=== PATIENT | male | born 1965 | race Caucasian/White ===

== ENCOUNTER 2021-08-30 12:10 | Emergency (ER) | payer BC, SELFPAY ==
--- NOTE | ~2021-08-30 | XR_ITS ---
EXAMINATION: XR shoulder RT min 2V DATE: 08/30/2021 12:32 INDICATION: Right shoulder pain. TECHNIQUE: 4 views of right shoulder were obtained. COMPARISON: Right shoulder radiographs 10/26/2009, MRI 10/30/2009 FINDINGS: Bone alignment is normal. No acute fracture. There are 2 screws in the acromion. There is m ild osteoarthritis of glenohumeral joint and acromioclavicular joint. IMPRESSION: 1. Mild polyarticular osteoarthritis. Reviewed, dictated and finalized at location B.
--- NOTE | ~2021-08-30 | XR_ITS ---
EXAMINATION: XR shoulder LT min 2V DATE: 08/30/2021 12:32 INDICATION: Left shoulder pain post fall TECHNIQUE: AP internally and externally rotated, AP oblique externally rotated and transscapular Y vi ews of the left shoulder were obtained. COMPARISON: None FINDINGS: Normal alignment. No fracture. Glenohumeral joint is normal. Acromioclavicular joint is normal. Cyst ic change suggested at the greater tuberosity which can be seen with chronic rotator cuff disease. Vi sual is portions of the left lung is clear. Soft tissues are unremarkable. IMPRESSION: No acute osseous abnormality. Reviewed, dictated and finalized at location A.
[2021-08-30 12:14] VITALS: BP 166/90; PULSE 67; RESP 20; TEMP 36.6; O2SAT 98
--- NOTE | 2021-08-30 14:07 | ED.FALL ---
HPI - Fall General Chief Complaint: Fall Stated Complaint: Rotator cuff tear Time Seen by Provider: 08/30/21 13:34 Source: patient Mode of arrival: ambulatory Limitations: no limitations History of Present Illness HPI Narrative: 55-year-old male presents today after a fall that he sustained yesterday. Patient states he was on a ladder about 2 feet up trying to put stuff on top of his camper when he fell onto his right side. Patient states on the way down he did hit his camper and then fell onto the ground. Patient with complaints of right shoulder pain that is now acute. Patient with chronic left shoulder pain that is now worse. Patient with limited range of motion to bilateral shoulders. Patient has been using ibuprofen at home with some relief. Patient denies hitting his head, neck pain, or leg pain. Related Data Allergies Allergy/AdvReac Type Severity Reaction Status Date / Time Penicillins Allergy Unknown Unknown Verified 08/30/21 13:00 Review of Systems Review of Systems: CONSTITUTIONAL: Denies fever, chills, or sweats. EYES: Denies visual changes, redness, or discharge. ENT: Denies rhinorrhea, congestion, sore throat, or otalgia. CARDIOVASCULAR: Denies chest pain, palpitations, or edema. RESPIRATORY: Denies cough or dyspnea. GASTROINTESTINAL: Denies abdominal pain, nausea, vomiting, or diarrhea. GENITOURINARY: Denies dysuria or hematuria. SKIN: Denies rash or itching. MUSCULOSKELETAL: Bilateral shoulder pain. Denies back pain or myalgia. NEUROLOGIC: Denies headache, numbness, dizziness, or weakness. PSYCHIATRIC: Denies anxiety or depression. PMFSH Family History Family History (Updated 06/24/16 @ 23:56 by DOCTOR UNKNOWN) Father Family history of lung cancer, Onset Age: 76 Patient's father is Carcinoma of colon Mother Patient's mother is Family history of lung cancer Family history of malignant neoplasm of breast in first degree relative Sibling Family history of lung cancer Other Family history of malignant neoplasm Social History Social History Smoking status: Former smoker Second hand tobacco smoke exposure: Yes Smoking end date: 03/20/86 Alcohol intake: current Exam Narrative: GENERAL: Well-appearing, well-nourished, and in no acute distress. HEAD: Normocephalic, atraumatic. EYES: PERRLA and EOMI. ENT: Nares clear, no rhinorrhea or epistaxis. Mucous membranes moist. Oropharynx without tonsillar hypertrophy exudate or other lesions. Bilateral TMs pearly trujillo nonbulging NECK: Supple. No adenopathy or masses. No carotid bruits or JVD no spinal process tenderness. Patient with full range of motion. CHEST: Clear to auscultation. No respiratory distress. No wheezes rales or rhonchi HEART: Regular rate and rhythm. No murmur heard. Normal peripheral pulses. ABDOMEN: Soft, nontender, nondistended, normal active bowel sounds. EXTREMITIES: Patient able to abduct bilateral shoulders to 90 degrees. Right shoulder with pain at 15 degrees AB duction. No swelling noted, no deformity noted. SKIN: Abrasion to right chauhan. Warm, dry, no rash. NEURO: No focal deficits. Alert and oriented x3. PSYCH: Normal mood and affect. Course Vital Signs Vital signs: Vital Signs Temperature 36.6 C 08/30/21 12:14 Pulse Rate 67 08/30/21 12:14 Respiratory Rate 20 08/30/21 12:14 Blood Pressure 166/90 H 08/30/21 12:14 Pulse Oximetry 98 08/30/21 12:14 Oxygen Delivery Room Air 08/30/21 12:14 Temperature 36.6 C 08/30/21 12:14 Pulse Rate 67 08/30/21 12:14 Respiratory Rate 20 08/30/21 12:14 Blood Pressure 166/90 H 08/30/21 12:14 Pulse Oximetry 98 08/30/21 12:14 Oxygen Delivery Room Air 08/30/21 12:14 MDM - Fall MDM Narrative Medical decision making narrative: 55-year-old male HPI as noted. Patient denies hitting head or neck. Patient fell on his right shoulder. No spinal process tenderness. No indication for CT of cervical
== END 2021-08-30 14:18 | disposition home or self-care (01) ==
PROVIDERS: Emergency Provider Nurse Practitioner Family; PCP Student in an Organized Health Care Education/Training Program
DX: M25.511 Pain in right shoulder (principal); Z87.891 Personal history of nicotine dependence; W11.XXXA Fall on and from ladder, initial encounter
CPT/HCPCS: 73030; 99284

== ENCOUNTER 2021-09-15 06:48 | Outpatient (CLI) | payer BC, SELFPAY ==
--- NOTE | ~2021-09-15 | MR_ITS ---
EXAMINATION: MR shoulder RT wo con DATE: 09/15/2021 07:41 INDICATION: Rheumatic tear of the right rotator cuff presenting with right shoulder pain. TECHNIQUE: Magnetic resonance imaging (MRI) of the right shoulder was performed without intravenous c ontrast. Sequences included axial PD-weighted FS FSE, coronal oblique PD-weighted FS FSE, coronal obl ique T2-weighted FS FSE, sagittal PD-weighted FS FSE, and sagittal T1-weighted SE. COMPARISON: Right shoulder radiographs dated 09/03/2021 FINDINGS: Coracoacromial arch: The acromion is partially obscured by metallic magnetic field field artifact associated with a pair o f fixation screws as seen on the prior radiographs. There appears to been resection of the acromial s stephen of the coracoacromial ligament where there are multiple foci of susceptibility artifact. Moderate acromioclavicular osteoarthritis. Rotator cuff: Severe subscapularis tendinopathy with articular sided fraying/shallow fissuring along the deep gordo n of the distal tendon near the medial side of the lesser tuberosity footplate. There is also a small partial-thickness intrasubstance tear along the superolateral lesser tuberosity footplate allowing p artial subluxation of the long head biceps tendon across the medial rim of the intertubercular groove and overlying the small denuded portion of the footplate. There are multiple foci susceptibility art ifact in a few suture anchors along the superior facet of the greater tuberosity suggesting prior sup raspinatus tendon repair.Articular sided tear of the supraspinatus and infraspinatus tendons with med ial retraction of the articular sided tear margin, the supraspinatus portion of which is seen at the level of the rim of the glenoid with the torn infraspinatus portion of the tear margin curving and po steriorly and laterally. There is attenuation of the distal 5 cm of the supraspinatus tendon and conj oined portion of the supraspinatus and infraspinatus tendons. No definitive full-thickness tear defec t appreciated however a significant portion of the supraspinatus tendon with overlying the cephalad a spect of the humeral head is obscured by the magnetic field artifact. Moderate teres minor tendinopa thy without discrete tear. There is mild fatty atrophy of the supraspinatus, infraspinatus, teres min or and cephalad-most subscapularis tendons. Biceps tendon, glenoid labrum and glenohumeral cartilage: Severe tendinopathy of the long head biceps tendon is most severe along the intra-articular portion o f the tendon. There is a longitudinal split tear likely beginning in the intra-articular portion of t he tendon extending into the extra-articular portion of the intertubercular groove. There is a superi or, anterior to posterior tear of the glenoid labrum (SLAP tear) at the 11:00-o'clock position of the superior glenoid labrum. There is mild partial-thickness cartilage loss along the cephalad third of the glenoid with smooth chondral surface. Small subchondral osteophytes along the anterosuperior julee oid. Additional muscle thickness cartilage loss with subchondral osteophytes along the anterior infer omedial aspect of the humeral head. Fluid: Small glenohumeral joint effusion with partial extension of a small amount fluid along the long head biceps tendon sheath. No loose osteochondral bodies. Small amount of fluid in the subacromial/subdelt oid bursa consistent with mild bursitis but could also result from a nonvisualized full-thickness per foration/tear of the obscured portion of the rotator cuff. Bones: Normal bone marrow signal. No fracture or pathologic marrow replacing process. Postoperative changes at the acromion and humeral head as previously detailed. IMPRESSION: 1. Postoperative change of prior rotator cuff repair as well as of screw fixation at the acromion, bl adder resulting in prominent magnetic field artifact which obscures p
== END 2021-09-15 06:49 ==
PROVIDERS: PCP Orthopaedic Surgery; Visit Provider Student in an Organized Health Care Education/Training Program
DX: S46.011A Strain of muscle(s) and tendon(s) of the rotator cuff of right shoulder, initial encounter (principal); Z98.890 Other specified postprocedural states; M24.811 Other specific joint derangements of right shoulder, not elsewhere classified; S43.431A Superior glenoid labrum lesion of right shoulder, initial encounter; M19.011 Primary osteoarthritis, right shoulder
CPT/HCPCS: 73221

== ENCOUNTER 2021-11-09 14:30 | Outpatient (RCR) | payer BC, SELFPAY ==
[2021-10-12 11:02] VITALS: BP_SYST 155
--- NOTE | 2021-10-12 14:07 | PTOPEVAL ---
PHYSICAL THERAPY INITIAL EVALUATION. Thank you for referring Amadeo Chacko to [facility].? The patient is scheduled to be seen for therapy? 1x/week for 4 weeks. Please review, sign, date and return this plan of care NEL. I agree with and certify that the following plan of care is medically necessary. Referring Physician Date Attending Provider: Amadeo Lewis MD *PT Outpatient Evaluation Start: 10/12/21 Evaluation Information Diagnosis Yang shoulder pain Onset chronic, worse in the last month Subjective Information He has a R RTC repair ~10 Query Text:As Reported By Patient/ years ago. Pt states he has a Family rotator cuff tear on his right shoulder and likely his left. He fell a couple of weeks ago onto his R shoulder and this is what started his pain again . He received steroid injections in both shoulders and this helped a bit. 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 Pain increases yang with any overhead movement and lifting anything with significant weight. Pt states he is an avid bowler and has not attempted this since his fall. Pt initially seem reluctant that therapy is a suitable option. 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 Hand Dominance Right Pain Assessment Left Shoulder(s) Reported Pain Level 0 Pain Description Aching Lowest Pain Intensity 0 Greatest Pain Intensity 3 Pain Aggravating Factors Exercise/Activity,Lifting Right Shoulder(s) Reported Pain Level 0 Pain Description Pressure,Pulling,With Movement Pain Radiation Right Elbow Pain Frequency Acute,Chronic Lowest Pain Intensity 0 Greatest Pain Intensity 8 Pain Aggravating Factors Exercise/Activity,Lifting Upper Extremity Range of Motion Scapular/ Shoulder Range of Motion Right Shoulder Flexion - Active 147 Shoulder Flexion - Passive 150 Shoulder Abduction - Active 130 Shoulder Abduction - Passive 155 Shoulder Medial Rotation - Passive 50 Shoulder Medial Rotation - Active R Iliac crest Shoulder Lateral Rotation - Passive 45 Shoulder Lateral Rotation - Active T2 Scapular/Shoulder Ra
[2021-11-09 14:31] VITALS: BP_SYST 170
--- NOTE | 2021-11-11 08:04 | PTOPEVAL ---
PHYSICAL THERAPY PROGRESS REPORT. Thank you for referring Amadeo Chacko to [facility].? The patient is scheduled to be seen for follow up in one month, if needed. Please review, sign, date and return this plan of care NEL. I agree with and certify that the following plan of care is medically necessary. Referring Physician Date Attending Provider: Amadeo Lewis MD *PT Outpatient Evaluation Start: 10/12/21 Evaluation Information Problem Diagnosis Yang shoulder pain Onset chronic, worse in the last month Subjective Information Pt states his L shoulder is Query Text:As Reported By Patient/ doing better but the R one is Family still aching and sore. He states he still has difficulty lifting things overhead. Pt states he has difficulty and pain with daily tasks d/t his shoulder. Pt reports good compliance with his HEP. Pain Assessment Left Shoulder(s) Reported Pain Level 1 Greatest Pain Intensity 2 Right Shoulder(s) Reported Pain Level 2 Greatest Pain Intensity 8 Upper Extremity Range of Motion Scapular/ Shoulder Range of Motion Right Shoulder Flexion - Active 140 Shoulder Flexion - Passive 165 Shoulder Abduction - Active 125 Shoulder Abduction - Passive 170 Shoulder Medial Rotation - Passive 50 Shoulder Medial Rotation - Active L5 Shoulder Lateral Rotation - Passive 60 Shoulder Lateral Rotation - Active T3 Scapular/Shoulder Range of Motion Shoulder rotation measured Comments with shoulder abducted to 60 deg Left Shoulder Flexion - Active 165 Shoulder Abduction - Active 165 Shoulder Medial Rotation - Passive 58 Shoulder Medial Rotation - Active L PSIS Shoulder Lateral Rotation - Passive 65 Shoulder Lateral Rotation - Active T2 Scapular/Shoulder Range of Motion Shoulder rotation measured Comments with shoulder abducted to 60 deg Upper Extremity Muscle Strength Testing Scapular/Shoulder Right Scapular Retraction - Rhomboid 4 Good Shoulder Flexion Strength 4- Good - Shoulder Abduction Strength 4- Good - Shoulder Medial Rotation Strength 4 Good Shoulder Lateral Rotation Strength 4- Good - Left Scapular Retraction - Rhomboid 4+ Good + Shoulder Flexion Strength 4 Good Shoulder Abduction Strength 4 Good Shoulder Medial Rotation Strength 4+ Good + Shoulder Lateral Rotation Strength 4+ Good + Posture Shoulder Posture (L) Rounded,(R) Rounded,(L) Forward,(R) Forward Scapula Posture
--- NOTE | 2021-12-07 16:03 | PTOPDC ---
Assessment and note entered by Malvin Barragan, PT, DPT Evaluation Information Assessment Status Discharge - Pt Not Presen Subjective Information Patient did not show up for scheduled appointment this date. Called patients and he states he forgot about his appointment. He reports he is doing well and has minimal limitations. Assessment PT Clinical Summary Amadeo completed 4 visits of skilled therapy today from 10/12/21 to 11/09/21. He will be discharged from skilled therapy services at this time. He was told to follow up with his referring provider if any needs arise.
== END 2021-12-08 10:32 | disposition home or self-care (01) ==
LOC: ANHPT 14:30
PROVIDERS: PCP Student in an Organized Health Care Education/Training Program; Referring Provider Orthopaedic Surgery; Visit Provider Orthopaedic Surgery
DX: M25.511 Pain in right shoulder (principal); M25.512 Pain in left shoulder
CPT/HCPCS: 97014; 97110; 97140; 97161; 97530; 99199; G0283

== ENCOUNTER 2022-08-25 13:19 | Outpatient (RCR) | payer BC, SELFPAY ==
--- NOTE | 2022-08-11 14:34 | PCPTNOTE ---
Patient did not show up for scheduled evaluation this date.
--- NOTE | 2022-08-25 14:14 | PTOPEVDC ---
Assessment and note entered by Kinsey Wade, PT Thank you for referring Amadeo Chacko to [facility].? An evaluation has been completed. No further treatment is needed. Evaluation Information Assessment Status Evaluation / Discharge Diagnosis L bicep tear Onset August 01, 2022 Subjective Information picking up a big jug of water for water cooler-- heard a pop and had pain in bicep; have been careful with using L arm, but usually not use L arm too much due to rotator cuff tear/ pain and seeing Dr Lewis for it had an injection that helped the pain--have appt later this month to follow up on L shoulder pain; Is R handed and able to do all of his usual home and work activities; Reported Pain Level Pain Score Self Report Additional Pain Score Comments no pain in L bicep over the past week; no issues with sleeping, activity level due to elbow pain; does limit use of L arm due to L shoulder pain; educated and discussed: kinesiotape over bicep- strip along bicep muscle and horizontal over spasm areas; educated on application and use of tape- -if pain increases and want support to bicep; Assessment PT Clinical Summary Sergo has the diagnosis of L biceps tear/rupture with use of L arm for lifting. He has not had any pain in the past week over his bicep. And he is doing all of his normal home and work tasks. His history does include L shoulder pain and under Dr eLwis's care for shoulder. He is R hand dominant and has decreased use of L arm due to shoulder pain. Sergo did not have any reported L elbow issues or limitations that require PT. With the evaluation, he has full active ROM of L elbow without pain; visible raised area of biceps and does not have any pain with palpation; elbow flexion/extension with 10# hand weight 5 reps without any issues. Education provided to pt for posture, position and body mechanics. And on use of kinsiotape PRN over bicep for support. Skilled PT services are not indicated. Discharge PT services. Plan of Care PT Services Indicated No
== END 2022-08-25 14:55 | disposition home or self-care (01) ==
LOC: ANHPT 13:19
PROVIDERS: PCP Student in an Organized Health Care Education/Training Program; Visit Provider Student in an Organized Health Care Education/Training Program
DX: S46.212D Strain of muscle, fascia and tendon of other parts of biceps, left arm, subsequent encounter (principal)
CPT/HCPCS: 97161; 97530

== ENCOUNTER 2023-07-13 08:38 | Outpatient (CLI) | payer BC, SELFPAY ==
--- NOTE | ~2023-07-13 | MR_ITS ---
MRI of the right shoulder Technique: Axial proton-density fat-sat images, coronal proton density fat-sat and T2 fat-sat images, and sagittal T1-weighted and T2 fat-sat images were acquired. Clinical History: Rotator cuff tear COMPARISON: 09/15/2021 Findings: Stable postoperative change with associated susceptibility artifacting hardware at the AC j oint, with underlying probable moderate AC joint arthrosis. Coracoclavicular ligaments are intact. Susceptibility artifact somewhat limits evaluation of the supraspinatus and infraspinatus tendons. Ev idence of probable prior rotator cuff repair surgery. There is probable at least moderate to high-gra de articular surface partial tearing extensively involving the supraspinatus and extending just tendo ns, but complete tearing is not excluded. Subscapularis tendon demonstrates severe tendinosis with pr obable low to moderate grade articular surface partial tearing. There is medial dislocation of the bi ceps tendon from the bicipital groove. No definite labral tear identified. Inferior glenohumeral ligament is intact. Humeral head is high riding. Articular cartilage of the gle nohumeral joint is preserved. No significant glenohumeral joint effusion. No muscle atrophy or edema evident. Impression: Stable postoperative change and susceptibility artifact the AC joint, which impairs visualization/jonathan luation of the rotator cuff tendons. Suspected prior rotator cuff repair surgery. Probable at least moderate to high-grade partial thickne ss articular surface tearing extensively involving the supraspinatus and infraspinatus tendons. Full- thickness tearing is not excluded, but evaluation is suboptimal due to susceptibility artifact. Consi vahe MR arthrogram to attempt to better evaluate for full-thickness recurrent tearing. Medial dislocation of the biceps tendon from the bicipital groove with low to moderate grade articula r surface partial tearing of the subscapularis tendon. High riding humeral head. Reviewed, dictated and finalized at location M. Impression: Stable postoperative change and susceptibility artifact the AC joint, which imp airs visualization/evaluation of the rotator cuff tendons. Suspected prior rotator cuff repair surgery. Probable at least moderate to high -grade partial thickness articular surface tearing extensively involving the foster praspinatus and infraspinatus tendons. Full-thickness tearing is not excluded, but evaluation is suboptimal due to susceptibility artifact. Consider MR arthro gram to attempt to better evaluate for full-thickness recurrent tearing. Medial dislocation of the biceps tendon from the bicipital groove with low to m oderate grade articular surface partial tearing of the subscapularis tendon. High riding humeral head.
== END 2023-07-13 08:39 | disposition home or self-care (01) ==
PROVIDERS: PCP Student in an Organized Health Care Education/Training Program; Visit Provider Orthopaedic Surgery
DX: M75.101 Unspecified rotator cuff tear or rupture of right shoulder, not specified as traumatic (principal); Z98.890 Other specified postprocedural states
CPT/HCPCS: 73221

== ENCOUNTER 2023-07-31 14:39 | Emergency (ER) | payer BC, SELFPAY ==
--- NOTE | 2023-07-31 14:43 | ED.SKABFB ---
HPI - Skin/Abscess/Foreign Bdy General Chief complaint: Skin/Abscess/Foreign Body Stated complaint: tick bite left hip Time Seen by Provider: 07/31/23 15:03 Source: patient and RN notes reviewed Mode of arrival: ambulatory Limitations: no limitations History of Present Illness HPI narrative: 57-year-old male presents with concern for tick bite. He reports he pulled a tick off his abdomen on Monday evening. He reports a red raised area at the tick bite site. He reports he fully removed the tick. He reports he has been feeling achy with a headache. Denies fever MD complaint: insect bite/sting Related Data Home Medications Medication Instructions Recorded Confirmed baclofen 5 mg tablet 5 mg PO .PRN 09/22/21 07/31/23 fluticasone propionate 50 2 spray intranasal DAILY 09/22/21 07/31/23 mcg/actuation nasal spray,suspension (Allergy Relief (fluticasone)) ibuprofen 200 mg tablet (Advil) 200 mg PO Q6H PRN Pain 09/22/21 07/31/23 rosuvastatin 20 mg tablet (Crestor) 20 mg PO DAILY 09/22/21 07/31/23 tamsulosin 0.4 mg capsule 0.4 mg PO DAILY 07/04/23 07/31/23 Allergies Allergy/AdvReac Type Severity Reaction Status Date / Time Penicillins Allergy Unknown Unknown Verified 07/31/23 14:59 Review of Systems Review of Systems: CONSTITUTIONAL: Denies malaise, chills, sweats, or fever. EYES: Denies redness, or discharge. ENT: Denies rhinorrhea, congestion, swollen lips, swollen tongue CARDIOVASCULAR: Denies chest pain, palpitations, or edema. RESPIRATORY: Denies cough or dyspnea. GASTROINTESTINAL: Denies abdominal pain, nausea, vomiting SKIN: Reports red raised area at the tick bite site MUSCULOSKELETAL: Denies joint pain. Reports myalgia. NEUROLOGIC: Reports headache. All systems reviewed & are unremarkable except as noted in HPI and below PMFSH Past Medical History Medical History Acid reflux Allergies Enlarged prostate Hyperlipemia Surgical History Surgical History History of nasal surgery History of rotator cuff surgery right Family History Family History Father Family history of lung cancer, Onset Age: 76 Patient's father is Carcinoma of colon Family history of malignant neoplasm Malignant neoplasm of prostate Mother Patient's mother is Family history of lung cancer Family history of malignant neoplasm of breast in first degree relative Family history of malignant neoplasm Breast cancer Sibling Family history of lung cancer Family history of alcoholism Diabetes mellitus Family history of leukemia Social History Social History Smoking status: Former smoker Second hand tobacco smoke exposure: Yes Smoking end date: 03/20/86 Alcohol intake: current Alcohol use details: Beer Substance use: never Do You Feel Safe in your Home?: Yes Lack of Transportation: No Lack of Food: Never True Current Housing: I Have Housing Concerned About Future Housing: No Difficulty Paying Gas/Electric Bills: No Difficulty Paying for Meds: No Currently Unemployed: No Education: High School Diploma/GED Difficulty w/ Childcare or Family Care: No Living arrangements: with family Occupation/Education: occupation 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 There is no relevant family history pertinent to the presenting complaint Exam Narrative: GENERAL: Well-appearing, well-nourished, and in no acute distress. HEAD: Normocephalic, atraumatic. EYES: PERRLA, conjunctivae clear, and EOMI. ENT: Mucous membranes moist. NECK: Supple. No lymphadenopathy CHEST: Clear
[2023-07-31 14:58] VITALS: BP 142/87; PULSE 65; RESP 20; TEMP 37.1; O2SAT 96
[2023-07-31 15:00] VITALS: BP 142/87; PULSE 65; RESP 20; TEMP 37.1; O2SAT 96
== END 2023-07-31 15:15 | disposition home or self-care (01) ==
PROVIDERS: Emergency Provider Nurse Practitioner; PCP Student in an Organized Health Care Education/Training Program
DX: S70.362A Insect bite (nonvenomous), left thigh, initial encounter (principal); W57.XXXA Bitten or stung by nonvenomous insect and other nonvenomous arthropods, initial encounter; E78.5 Hyperlipidemia, unspecified
CPT/HCPCS: 99213; G0463

== ENCOUNTER 2023-10-16 15:05 | Emergency (ER) | payer BC, SELFPAY ==
[2023-10-16 15:16] VITALS: BP 161/93; PULSE 64; RESP 18; TEMP 37; O2SAT 98
--- NOTE | 2023-10-16 15:20 | ED.URI ---
HPI - URI/Sore Throat General Chief Complaint: Upper Respiratory Infection Stated Complaint: Throat/Cough/Sinus Time Seen by Provider: 10/16/23 15:26 Source: patient and RN notes reviewed Mode of arrival: ambulatory Limitations: no limitations History of Present Illness HPI Narrative: 58-year-old male presents with concern of for one-week history of nasal congestion, sinus congestion, cough, productive cough, postnasal drainage. He denies fever, body aches, chills, sweats. Reports taking Mucinex. MD elicited complaint: cough, sore throat and nasal congestion Related Data Home Medications Medication Instructions Recorded Confirmed baclofen 5 mg tablet 5 mg PO .PRN 09/22/21 10/16/23 fluticasone propionate 50 2 spray intranasal DAILY 09/22/21 10/16/23 mcg/actuation nasal spray,suspension (Allergy Relief (fluticasone)) ibuprofen 200 mg tablet (Advil) 200 mg PO Q6H PRN Pain 09/22/21 10/16/23 rosuvastatin 20 mg tablet (Crestor) 20 mg PO DAILY 09/22/21 10/16/23 tamsulosin 0.4 mg capsule 0.4 mg PO DAILY 07/04/23 10/16/23 Allergies Allergy/AdvReac Type Severity Reaction Status Date / Time Penicillins Allergy Unknown Unknown Verified 10/16/23 15:27 Review of Systems Review of Systems: CONSTITUTIONAL: Denies malaise, chills, sweats, or fever. EYES: Denies visual changes, redness, or discharge. ENT: Reports rhinorrhea, congestion, postnasal drainage and sore throat. CARDIOVASCULAR: Denies chest pain, palpitations, or edema. RESPIRATORY: Reports productive cough. Denies dyspnea. GASTROINTESTINAL: Denies abdominal pain, nausea, vomiting, diarrhea SKIN: Denies rash or itching. MUSCULOSKELETAL: Denies myalgia. NEUROLOGIC: Denies headache. All systems reviewed & are unremarkable except as noted in HPI and below PMFSH Past Medical History Medical History Acid reflux Allergies Enlarged prostate Hyperlipemia Surgical History Surgical History History of nasal surgery History of rotator cuff surgery right Family History Family History Father Family history of lung cancer, Onset Age: 76 Patient's father is Carcinoma of colon Family history of malignant neoplasm Malignant neoplasm of prostate Mother Patient's mother is Family history of lung cancer Family history of malignant neoplasm of breast in first degree relative Family history of malignant neoplasm Breast cancer Sibling Family history of lung cancer Family history of alcoholism Diabetes mellitus Family history of leukemia Social History Social History Smoking status: Former smoker Second hand tobacco smoke exposure: Yes Smoking end date: 03/20/86 Alcohol intake: current Alcohol use details: Beer Substance use: never Do You Feel Safe in your Home?: Yes Lack of Transportation: No Lack of Food: Never True Current Housing: I Have Housing Concerned About Future Housing: No Difficulty Paying Gas/Electric Bills: No Difficulty Paying for Meds: No Currently Unemployed: No Education: High School Diploma/GED Difficulty w/ Childcare or Family Care: No Living arrangements: with family Occupation/Education: occupation 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 There is no relevant family history pertinent to the presenting complaint Exam Narrative: GENERAL: Well-appearing, well-nourished, and in no acute distress. HEAD: Normocephalic EYES: PERRLA, conjunctivae clear ENT: Nares clear, turbinates edematous and erythematous. Mucous membranes moist. TM pearly trujillo with dull light reflex bilaterally; no
== END 2023-10-16 15:36 | disposition home or self-care (01) ==
PROVIDERS: Emergency Provider Nurse Practitioner; PCP Student in an Organized Health Care Education/Training Program
DX: J32.9 Chronic sinusitis, unspecified (principal); J40 Bronchitis, not specified as acute or chronic; Z87.891 Personal history of nicotine dependence; K21.9 Gastro-esophageal reflux disease without esophagitis; N40.0 Benign prostatic hyperplasia without lower urinary tract symptoms; E78.5 Hyperlipidemia, unspecified
CPT/HCPCS: 99213; G0463

== ENCOUNTER 2024-06-10 08:54 | Emergency (ER) | payer BC, SELFPAY ==
--- NOTE | ~2024-06-10 | XR_ITS ---
EXAMINATION: XR knee RT min 4V DATE: 06/10/2024 10:09 INDICATION: Right knee pain. Injury. TECHNIQUE: 4 views of right knee were obtained. COMPARISON: None. FINDINGS: Alignment is normal. No fracture. There is mild tricompartmental osteoarthritis. No knee kandy int effusion. IMPRESSION: 1. Mild right knee osteoarthritis. Reviewed, dictated and finalized at location A.
--- NOTE | ~2024-06-10 | US_ITS ---
RIGHT LOWER EXTREMITY VENOUS ULTRASOUND Ordering provider: Stacy Hamilton APRN History: . calf pain, + Filomena's sign . Comparison: None. FINDINGS: --COMMON FEMORAL: Patent and free of thrombus. Normal compressibility, phasic flow and augmentation. --PROXIMAL SUPERFICIAL FEMORAL: Patent and free of thrombus. Normal compressibility, phasic flow and augmentation. --DISTAL SUPERFICIAL FEMORAL: Patent and free of thrombus. Normal compressibility, phasic flow and au gmentation. --POPLITEAL: Patent and free of thrombus. Normal compressibility, phasic flow and augmentation. --POSTERIOR TIBIAL: Patent and free of thrombus. Normal compressibility, phasic flow and augmentation . IMPRESSION: Negative right lower extremity venous US. No deep vein thrombosis. Reviewed, dictated and finalized at location A.
[2024-06-10 09:02] VITALS: BP 186/82; PULSE 66; RESP 15; TEMP 36.6; O2SAT 99
--- OUTSIDE RECORDS SUMMARY | 2024-06-10 09:37 | XMS_ITS | Patient Health Record ---
Author Organization [facility] Address [address] [place], [place] [id number] Care Team Providers Care Assistant Softball Coach Name Role Phone KAROLINE GIBBS Unavailable [phone] Reinaldo Sahu Unavailable Unavailable Allergies Allergen (clinical drug ingredient) Drug/Non Drug Allergy documented on EMR Reaction Allergy Type Onset Date Status Substance with penicillin structure and antibacterial mechanism of action (substance) Penicillins Unknown Drug Allergy 09/13/2021 active Reason For Referral No Information Medications Medication SIG (Take, Route, Frequency, Duration) Notes Start Date End Date Status terbinafine 250 MG Oral Tablet ORAL terbinafine 250 MG Oral TabletOriginal Medicationterbinafine 250 MG Oral Tablet *Reorder from Jooce for eRx and Interaction Alerts* 10/13/2021 Active Plan Of Treatment No Information Insurance Providers Payer Name Payer Address Payer Phone Subscriber Number Group Number Insured Name Patient Relationship to Insured Coverage Start Date Coverage End Date [facility] ([facility]) ATTN CLAIMS [address] [place] [address] [id number] ROSS SAAD Self - patient is the insured Medical (General) History Surgical History Surgery Date(Month/Year) Shoulder surgery
--- OUTSIDE RECORDS SUMMARY | 2024-06-10 09:37 | XMS_ITS | Encounter Summary ---
Author Organization [facility] Address [facility] [place] [address] Care Team Providers Care Performance Makeup Artist Name Role Phone Reinaldo Sahu DO Primary Care Provider + Encounter Details Date Type Department Care Team (Late Contact Info) Description 08/25/2021 Viewbix Message Enc [facility] [address] [address] [address], [facility] Provider monitor results Social History Tobacco Use Types Packs/Day Years Used Date Smoking Tobacco: Former Cigarettes 1.5 7 1 - 1986 Smokeless Tobacco: Never Alcohol Use Standard Drinks/Week Comments Yes 0 (1 standard drink = 0.6 oz pur e alcohol) 7-8 drinks weekly PHQ-2 Answer Date Recorded PHQ-2 Score - If the patient scores above 3, please move on to questions 3-9 0 06/21/2021 Sex and Gender Information Value Date Recorded Sex Assigned at Male 02/27/2024 9:58 AM CLIP ON SUNGLASSES ASSEMBLER Legal Sex Male 1:27 PM CLIP ON SUNGLASSES ASSEMBLER Gender Identity Male 07/05/2021 3:30 PM CDT Sexual Orientation Straight 07/05/2021 3: 30 PM CDT 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 No / Unsure 08/23/2021 8:07 AM CDT documented as of this encounter Plan of Treatment Upcoming Encounters Date Type Department Care Team (Late Contact Info) Description 06/14/2024 2:20 PM CDT Office Visit [facility] Family [facility] Internal Medicine - [place] [address] [place] [address] Reinaldo Sahu DO [address] [place] [address] 02/21/2025 2:00 PM CLIP ON SUNGLASSES ASSEMBLER Office Visit [facility], [address] [place] [address] Sharda Vigil, PROTOTYPE FABRICATOR-C Three [facility]. [facility] [address] [place], [place] [phone] documented as of this encounter Visit Diagnoses Not on filedocumented in this encounter Additional Health Concerns Assessment Noted Time PHQ-9 Depression Total Score: 0 06/22/19 22 7:15 AM CDT documented as of this encounter Care Teams Performance Makeup Artist Relationship Specialty Start Date End Date Reinaldo Sahu DO [facility] [place] [address] PCP - General FAMILY PRACTICE 04/16/18 documented as of this encounter
--- OUTSIDE RECORDS SUMMARY | 2024-06-10 09:37 | XMS_ITS | Clinical Summary ---
Author Organization [facility] Address [address] [place] [address] Care Team Providers Care Medical Assistant Secretary Name Role Phone Reinaldo Sahu DO Primary Care Provider + Allergies Active Allergy Reactions Criticality Noted Date Comments Penicillins Unknown 04/26/2018 Medications fluticasone propionate 50 MCG/ACT nasal spray 1 spray by Nasal route daily. Active baclofen 10 MG tablet Take 1 tablet (10 mg total) by mouth as needed. Active albuterol sulfate HFA 108 (90 Base) MCG/ACT inhaler Inhale 2 puffs into the lungs every 6 (six) hours as needed. 4 Active Glucose Blood test stripIndications:Ty pe 2 diabetes mellitus with hyperglycemia, without long-term current use of insulin ([facility] HHS/HCC) Check blood sugar once daily in AM when fasting 100 strip 11 4 Active Blood Glucose Monitoring Suppl (ONE TOUCH ULTRA 2) w/Device KitIndications:Type 2 diabetes mellitus with hyperglycemia, without long-term current use of insulin ([facility] HHS/HCC) Check blood sugar once daily in AM when fasting 1 kit 4 Active Lancets (ONETOUCH ULTRASOFT) lancetsIndications: Type 2 diabetes mellitus with hyperglycemia, without long-term current use of insulin ([facility] HHS/HCC) Check blood sugar once daily in AM when fasting 1 each 11 4 Active aspirin 81 MG chewable tabletIndications:T ype 2 diabetes mellitus with hyperglycemia, without long-term current use of insulin ([facility] HHS/HCC) Chew 1 tablet (81 mg total) by mouth daily. 90 tablet 3 4 Active rosuvastatin (CRESTOR) 20 MG tabletIndications:M ixed hyperlipidemia TAKE 1 TABLET BY MOUTH NIGHTLY AT BEDTIME 90 tablet 5 Active tamsulosin (FLOMAX) 0.4 MG CapIndications:Elev ated PSA TAKE 2 CAPSULES BY MOUTH NIGHTLY 180 capsule 5 Active omeprazole (PRILOSEC) 40 MG capsuleIndications: Gastroesophageal reflux disease, unspecified whether esophagitis present Take 1 capsule by mouth once daily 30 capsule 1 5 Active Active Problems Problem Noted Date Diagnosed Date Type 2 diabetes mellitus wit h hyperglycemia, without long-term current use of insulin ([facility]) 02/27/2024 Colon cancer screening 01/17/2022 Overview (01/17/2022): Added automatically from request for surgery [id number] Gastroesophageal reflux dise ase, unspecified whether esophagitis present 01/17/2022 Overview (01/17/2022): Added automatically from request for surgery [id number] Personal history of colonic polyps 01/17/2022 Overview (01/17/2022): Added automatically from request for surgery [id number] Dyspnea on exertion 02/23/2017 Electrocardiogram abnormal 02/23/2017 Resolved Problems Problem Noted Date Diagnosed Date Resolved Date Gastroesophageal reflux disease 02/23/2017 07/06/2021 Encounters Date Type Department Care Team Description 04/29/2024 Telephone [facility] Nutrition Services [address] [place] [address] Madelaine Marshall, ANY Diabetes (Patient not interested in rescheduling nutrition/diabetes appointment with dietitian at this time ) from Last 3 Months Immunizations Name Administration Dates Next Due Fluzone (IIV3, Trivalent, 0.5 ML Prefilled Syrin ge) 01/15/2024 Fluzone 6 Months+ Quad (0.5 mL Prefilled Syringe ) 03/23/2022,12/06/2019 MODERNA COVID-19 (12+) MRNA, LNP-S, PF, 100 MCG/ 0.5 ML DOSE 07/17/2020,06/19/2020 Shingrix 01/15/2024 Tdap (Boostrix) 08/07/2018 Family History Medical History Relation Comments Cancer Brother Lung Cancer Father Lung Cancer Mother Lung Cancer Sister Lymphoma No Known Problems Son 1 No Known Problems Son 2 No Known Problems Son 3 Relation Status Comments Brother Father Mother Sister Son 1 Alive Son 2 Alive Son 3 Alive Social History Tobacco Use Types Packs/Day Years Used Date Smoking Tobacco: Former Cigarettes 1.5 7 1 980 - 1986 Smokeless Tobacco: Never Tobacco Cessation:Counseling Given: Not Answered Alcohol Use Standard Drinks/Week Comments Yes 0 (1 standard drink = 0.6 oz pur e alcohol) 7-8 drinks weekly PHQ-2 Answer Date Recorded Patient Health Questionnaire-2 Score 1 02/27/2024 Sex and Gender Information Value Date Recorded Sex Assigned at Male 02/27/2024 9:58 AM LABORER WHARF Legal Sex Male 1:27 PM LABORER WHARF Gender Identity Male 07/05/2021 3:30 PM CDT Sexual Orientation Straight 07/05/2021 3: 30 PM CDT 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 file Not on f ile Not on file Last Filed Vital Signs Vital Sign Reading Time Taken Comments Blood Pressure 136/86 02/27/2024 9:52 AM LABORER WHARF Pulse 87 02/27/2024 9:52 AM LABORER WHARF Temperature 36.5 C (97.7 F) 02/27/2024 9:52 AM LABORER WHARF Respiratory Rate 16 02/27/2024 9:52 AM LABORER WHARF Oxygen Saturation 98% 02/27/2024 9:52 AM LABORER WHARF Inhaled Oxygen Concentration - - Weight 136.2 kg (300 lb 4.8 oz) 02/27/2024 9:52 AM LABORER WHARF Height 185.4 cm (6' 1 ) 02/27/2024 9:52 AM LABORER WHARF Body Mass Index 39.62 02/27/2024 9:52 AM LABORER WHARF Plan of Treatment Upcoming Encounters Date Type Department Care Team (Late st Contact Info) Description 06/14/2024 2:20 PM CDT Office Visit [facility] Family & Internal Medicine [address] [phone] Reinaldo Sahu DO [address] [place] [address] 02/21/2025 2:00 PM LABORER WHARF Office [facility], [address] [place], [place] [phone] Sharda Vigil, SURAJ Three [facility]. [address] [place] [address] Health Maintenance Due Date Last Done Comments Kidney Health Evaluation 1965 Pneumococcal Vaccine: Pediatrics (0 to 5 Years) and At-Risk Patients (6 to 64 Years) (1 of 2 - PCV) 09/19/1971 Diabetes: Retinopathy Eye Exam 09/19/1983 Annual Physical 08/08/2019 08/07/2018 Zoster Vaccines (2 of 2) 03/11/2024 01/15/2024 PHQ-2 (Physician [place]) 03/20/2024 02/27/2024 Hemoglobin A1C 07/15/2024 01/15/2024, 07/18, 09/07/2021, Additional history exists COVID-19 Vaccine (2023- season) 2025 03/10/2021, 07/17/2020, 06/19/2020 Postponed from 11/19/2023 (Patient Refused) Hepatitis B Vaccines (1 of 3 - 19+ 3-dose series) 01/14/2025 Postponed from 1984 (Patient/Guardian Refusal) Lipid Panel 01/14/2025 01/15/2024, 07/2022, 08/04/2022, Additional history exists Colorectal Cancer Screening Colonoscopy (10 Years) 01/31/2025 01/31/2022, 01/31/2022, 04/16/2014, Additional history exists DTaP, Tdap and Td Vaccines (2 - Td or Tdap) 08/07/2028 08/07/2018 Hepatitis C Completed 09/07/2021 Influenza Adult Completed 01/15/2024, 06/2022, 12/06/2019 Meningococcal B Vaccine Aged Out No l onger eligible based on patient's age to complete this topic Meningococcal Vaccine Aged Out No sara fransisca eligible based on patient's age to complete this topic RSV Immunizations Under 20 Months Aged Out No longer eligible based on patient's age to complete this topic Medical Devices Implanted Type Area Commercial Portfolio Manager Device Identifier Shelf Expiration Date Model / Serial / Lot Stent Propel Mini 16mm - [id number] Implanted:Qty: 1 on 09/06/2018 by Robin Gordon MD at [facility] [place] Left: Nose INTERSECT ENT [id number] 02/29/2020 [id number] / / [id number] Stent Propel Mini 16mm - [id number] Implanted:Qty: 1 on 09/06/2018 by Robin Gordon MD at [facility] [place] Right: Nose INTERSECT ENT [id number] 02/23/2020 [id number] / / [id number] Procedures Procedure Name Priority Date/Time Associated Diagnosis Comments LIPID PANEL Routine 01/15/2024 7:58 AM CDT Prediabetes Annual physical exam Screening for lipid disorders Screening for endocrine, metabolic and immunity disorder HEMOGLOBIN, GLYCOSYLATED Routine 01/15/2024 7:58 AM CDT Prediabetes Annual physical exam Screening for lipid disorders Screening for endocrine, metabolic and immunity disorder COLONOSCOPY Routine 01/31/2022 7:03 AM LABORER WHARF HEPATITIS C ANTIBODY W/RFX TO HCV RNA Routine 09/07/2021 11:47 AM CDT from Last 3 Months or Most Recently Relevant to Health Maintenance Results * (ABNORMAL) HEMOGLOBIN, GLYCOSYLATED (01/15/2024 7:58 AM CDT) HGB A1C 6.7(H) 4.5 - 6.2 % 01/15/2024 3:10 PM CDT [facility] ESTIMATED AVG GLUCOSE 146(H) 74 - 106 MG/DL 01/15/2024 3:10 PM CDT [facility] 01/15/2024 7:58 AM CDT Reinaldo Sahu DO LABORATORY Final Re sult [facility], [address] [place] [address], * (ABNORMAL) LIPID PANEL (01/15/2024 7:58 AM CDT) CHOLESTEROL 146 <200 MG/DL 01/15/2024 3:23 PM CDT [facility] TRIGLYCERIDES 216(H) <150 MG/DL 01/15/2024 3:23 PM CDT [facility] HDL 43 >40 MG/DL 01/15/2024 3:23 PM CDT [facility] LDL-C 60 <100 MG/DL 01/15/2024 3:23 PM CDT [facility] VLDL CALCULATION 43(H) 5 - 28 MG/DL 01/15/2024 3:23 PM CDT [facility] CHOL/HDL RATIO 3.4 0.0 - 4.0 01/15/2024 3:23 PM CDT [facility] LDL/HDL 1.4 0.41 - 2.13 01/15/2024 3:23 PM CDT [facility] NON HDL CHOLESTEROL 103 <140 MG/DL 01/15/2024 3:23 PM CDT [facility] 01/15/2024 7:58 AM CDT Reinaldo Sahu DO LABORATORY Final Re aime Performing Organization Address City/[facility]/ZIP Co de Phone Number JUAN MIGUEL [address], [address] [place] [address], * HEPATITIS C ANTIBODY W/RFX TO HCV RNA (09/07/2021 11:47 AM CDT) HEPATITIS C AB NON-REACTI VE NON-REACT ASHLEY [facility] SIGNAL TO CUTOFF 0.01 <[address] [facility] Comment: HCV antibody was non-reactive. There is no laboratory evidence of HCV infection. In most cases, no further action is required. However, if recent HCV exposure is suspected, a test for HCV RNA (test code 85192) is suggested. For additional information please refer to http://education.[employer]/faq/WWG20z7 (This link is being provided for informational/ educational purposes only.) 09/07/2021 11:4 7 AM CDT 09/08/2021 8:33 AM CDT us Reinaldo Sahu DO LABORATORY Final Re sult [facility] [address] [place] [address] * COLONOSCOPY GENERIC (04/16/2014) 04/16/2014 Narrative 04/16/2014 Ordered by an unspecified provider. us Documents Scanned SCANNING Final Result from Last 3 Months or Most Recently Relevant to Health Maintenance Insurance Care Teams Medical Assistant Secretary Relationship Specialty Start Date End Date Reinaldo Sahu DO [address] [place] [phone] PCP - General FAMILY PRACTICE 04/16/18
--- OUTSIDE RECORDS SUMMARY | 2024-06-10 09:37 | XMS_ITS | Encounter Summary ---
Author Organization [facility] Address [facility] [place] [address] Care Team Providers Care Regional Marketing Director Name Role Phone Reinaldo Sahu DO Primary Care Provider + Encounter Details Date Type Department Care Team (Late Contact Info) Description 08/25/2021 [employer] Message Enc [facility] [address] [address] Mychart, [facility] Provider lab results Social History Tobacco Use Types Packs/Day Years Used Date Smoking Tobacco: Former Cigarettes 1.5 7 1 980 - 1986 Smokeless Tobacco: Never Alcohol Use Standard Drinks/Week Comments Yes 0 (1 standard drink = 0.6 oz pur e alcohol) 7-8 drinks weekly PHQ-2 Answer Date Recorded PHQ-2 Score - If the patient scores above 3, please move on to questions 3-9 0 06/21/2021 Sex and Gender Information Value Date Recorded Sex Assigned at Male 02/27/2024 9:58 AM PCT Legal Sex Male 1:27 PM PCT Gender Identity Male 07/05/2021 3:30 PM CDT Sexual Orientation Straight 07/05/2021 3: 30 PM CDT 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. [facility] [address] [place], [place] [phone] documented as of this encounter Visit Diagnoses Not on filedocumented in this encounter Additional Health Concerns Assessment Noted Time PHQ-9 Depression Total Score: 0 06/22/19 22 7:15 AM CDT documented as of this encounter Care Teams Regional Marketing Director Relationship Specialty Start Date End Date Reinaldo Sahu DO [facility] [place] [address] PCP - General FAMILY PRACTICE 04/16/18 documented as of this encounter
--- OUTSIDE RECORDS SUMMARY | 2024-06-10 09:37 | XMS_ITS | Encounter Summary ---
Author Organization [facility] Address [facility] [place] [address] Care Team Providers Care Tub Washer Name Role Phone Reinaldo Sahu DO Primary Care Provider + Encounter Details Date Type Department Care Team (Late Contact Info) Description 01/28/2020 Prep for Procedure [place] Pre-Admission Testing [facility], [place] [id number] Austin Harp MD [address] [place] [id number] Social History Tobacco Use Types Packs/Day Years Used Date Smoking Tobacco: Former Cigarettes 1.5 7 1 - 1986 Smokeless Tobacco: Never Alcohol Use Standard Drinks/Week Comments Yes 0 (1 standard drink = 0.6 oz pur e alcohol) 7-8 drinks weekly PHQ-2 Answer Date Recorded PHQ-2 Score - If the patient scores above 3, please move on to questions 3-9 0 12/06/2019 Sex and Gender Information Value Date Recorded Sex Assigned at Male 02/27/2024 9:58 AM BOLT MAN Legal Sex Male 1:27 PM BOLT MAN Gender Identity Male 07/05/2021 3:30 PM CDT Sexual Orientation Straight 07/05/2021 3: 30 PM CDT 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 No / Unsure 01/31/2020 5:30 AM BOLT MAN documented as of this encounter Plan of Treatment Upcoming Encounters Date Type Department Care Team (Late st Contact Info) Description 06/14/2024 2:20 PM CDT Office Visit [facility] Family [facility] Internal Medicine - [place] [address] [place] [address] MariposadominikReinaldo DO [address] [place] [address] 02/21/2025 2:00 PM BOLT MAN Office Visit [facility] [place] [address] [place] [address] Sharda Vigil NP-C [facility]. [facility] [address] [place], [place] [id number] documented as of this encounter Results * PRE-SURGICAL/PRE-PROCEDURE CORONAVIRUS (COVID 19) (01/28/2020 8:57 AM BOLT MAN) CORONAVIRUS SARS COV 2 PCR (RESP) NOT DETECTED NOT DETECTED 01/29/2020 3:55 PM BOLT MAN [employer] [facility] Comment: A Not Detected (negative) test result for this test means that SARS- CoV-2 RNA was not present in the specimen above the limit of detection. A negative result does not rule out the possibility of COVID-19 and should not be used as the sole basis for treatment or patient management decisions. If COVID-19 is still suspected, based on exposure history together with other clinical findings, re-testing should be considered in consultation with public health authorities. Laboratory test results should always be considered in the context of clinical observations and epidemiological data in making a final diagnosis and patient management decisions. Please review the Fact Sheets and FDA authorized labeling available for health care providers and patients using the following websites: https://www.[employer].com/home/Covid-19/HCP/[employer]/fact- sheet.html https://www.[employer]/home/Covid-19/Patients/ Quest[employer]/fact-sheet.html This test has been authorized by the FDA under an Emergency Use Authorization (EUA) for use by authorized laboratories. Due to the current public health emergency, [employer] is receiving a high volume of samples from a wide variety of swabs and media for COVID-19 testing. In order to serve patients during this public health crisis, samples from appropriate clinical sources are being tested. Negative test results derived from specimens received in non-commercially manufactured viral collection and transport media, or in media and sample collection kits not yet authorized by FDA for COVID-19 testing should be cautiously evaluated and the patient potentially subjected to extra precautions such as additional clinical monitoring, including collection of an additional specimen. Methodology: Nucleic Acid Amplification Test (NAAT) includes RT-PCR or TMA Additional information about COVID-19 can be found at the [employer] website: www.[employer]/Covid19. Test performed at [employer] [place] [address] [place] [address] Director: LAURIE CARUSO DO,MPH FIRST TEST NO 01/28/2020 10:14 AM [facility] EMPLOYED IN HEALTHCARE NO 01/28/2020 10:14 AM [facility] SYMPTOMATIC DEFINED BY CDC NO 01/28/2020 10:14 AM [facility] DATE OF SYMPTOM ONSET NO 01/28/2020 10:36 AM [facility] HOSPITALIZATION STATUS NO 01/28/2020 10:14 AM [facility] PATIENT IN ICU NO 01/28/2020 10:14 AM [facility] RESIDENT OF [facility] NO 01/28/2020 10:14 AM [facility] NO 01/28/2020 10:36 AM [facility] PATIENT'S RACE WHITE OR 01/28/2020 10:14 AM [facility] ETHNICITY NONHISPANIC 01/28/2020 10:14 AM [facility] SOURCE (QST) NASOPHARYNGEAL SWAB 01/28/2020 10:14 AM [facility] NASOPHARYNGEAL SWAB / Unknown 01/28/2020 8:57 AM BOLT MAN us Austin Harp MD MICROBIOLOGY - GENERAL ORDERAB LES Final Result [facility] [address] [place] [address], [employer] [facility] [address] [place] [address], documented in this encounter Visit Diagnoses Diagnosis Preoperative testing- Primary Preoperative examination, unspecified documented in this encounter Additional Health Concerns Infection Onset Date Last Indicated Resolved Time COVID-19 Rule Out 01/28/2020 01/28/2020 01/29/2020 3:56 PM BOLT MAN Assessment Noted Time PHQ-9 Depression Total Score: 0 12/06/19 20 2:25 PM CDT documented as of this encounter Care Teams Tub Washer Relationship Specialty Start Date End Date Reinaldo Sahu DO [address] [place] [address] PCP - General FAMILY PRACTICE 04/16/18 documented as of this encounter
--- OUTSIDE RECORDS SUMMARY | 2024-06-10 09:37 | XMS_ITS | Encounter Summary ---
Author Organization [facility] Address [facility] [place] [address] Care Team Providers Care Hurl Shaker Name Role Phone Reinaldo Sahu DO Primary Care Provider + Encounter Details Date Type Department Care Team (Latest Contact Info) Description 01/17/2022 WP Fail-Safe Message Enc [facility] Multispecialty Care - [address], [address] [place] [phone] Michael, [facility] Provider time change on procedure Social History Tobacco Use Types Packs/Day Years Used Date Smoking Tobacco: Former Cigarettes 1.5 7 1 980 - 1986 Smokeless Tobacco: Never Alcohol Use Standard Drinks/Week Comments Yes 0 (1 standard drink = 0.6 oz pur e alcohol) 7-8 drinks weekly PHQ-2 Answer Date Recorded PHQ-2 Score - If the patient scores above 3, please move on to questions 3-9 0 11/19/2021 Sex and Gender Information Value Date Recorded Sex Assigned at Male 02/27/2024 9:58 AM TRAUMA DIRECTOR Legal Sex Male 1:27 PM TRAUMA DIRECTOR Gender Identity Male 07/05/2021 3:30 PM CDT Sexual Orientation Straight 07/05/2021 3: 30 PM CDT 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 No / Unsure 01/18/2022 2:13 PM CDT documented as of this encounter Plan of Treatment Upcoming Encounters Date Type Department Care Team (Late st Contact Info) Description 06/14/2024 2:20 PM CDT Office Visit [facility] Family & Internal Medicine - [place] [address] [place] [address] Reinaldo Sahu DO [address] [place] [address] 02/21/2025 2:00 PM TRAUMA DIRECTOR Office Visit [facility] [address] [place] [address] Sharda Vigil, BILLBOARD ERECTOR-C [facility]. [facility] [address] [place], [place] [phone] documented as of this encounter Visit Diagnoses Not on filedocumented in this encounter Additional Health Concerns Assessment Noted Time PHQ-9 Depression Total Score: 8 09/08/19 22 11:19 AM CDT documented as of this encounter Care Teams Hurl Shaker Relationship Specialty Start Date End Date Reinaldo Sahu DO [facility] [place] [address] PCP - General FAMILY PRACTICE 04/16/18 documented as of this encounter
--- NOTE | 2024-06-10 11:01 | ED_ITS ---
HPI - Extremity Injury (Lower) General Chief Complaint: Extremity Injury, Lower Stated Complaint: right knee pain Time Seen by Provider: 06/10/24 09:45 History of Present Illness HPI Narrative: Patient is a 58-year-old male who presents to the ER with complaints of right lower extremity pain and swelling. He reports approximately 1 week ago he was on a ladder and ?felt a pop his right knee. Patient endorses pain afterwards. He reports he is still experiencing pain around his right knee but is not experiencing significant in the back his right calf. Patient denies any relevant medical history. He reports he has been using ice and heat along with Tylenol to help relieve the pain, but has not been helpful. Patient denies any history of blood clots. Related Data Home Medications ?Medication ?Instructions ?Recorded ?Confirmed ?Last Taken ?Type baclofen 5 mg tablet 5 mg PO .PRN 09/22/21 10/16/23 Unknown History fluticasone propionate 50 2 spray intranasal DAILY 09/22/21 10/16/23 Unknown History mcg/actuation nasal spray,suspension (Allergy Relief (fluticasone)) ibuprofen 200 mg tablet (Advil) 200 mg PO Q6H PRN Pain 09/22/21 10/16/23 Unknown History rosuvastatin 20 mg tablet (Crestor) 20 mg PO DAILY 09/22/21 10/16/23 Unknown History tamsulosin 0.4 mg capsule 0.4 mg PO DAILY 07/04/23 10/16/23 Unknown History Allergies Allergy/AdvReac Type Severity Reaction Status Date / Time Penicillins Allergy Unknown Unknown Verified 06/10/24 09:02 Review of Systems Review of Systems: All systems reviewed & are unremarkable except as noted in HPI and below PMFSH Past Medical History Medical History Hyperlipemia Enlarged prostate Acid reflux Allergies Surgical History Surgical History History of nasal surgery History of rotator cuff surgery right Family History Family History Father Family history of lung cancer, Onset Age: 76 Patient's father is Carcinoma of colon Family history of malignant neoplasm Malignant neoplasm of prostate Mother Patient's mother is Family history of lung cancer Family history of malignant neoplasm of breast in first degree relative Family history of malignant neoplasm Breast cancer Sibling Family history of lung cancer Family history of alcoholism Diabetes mellitus Family history of leukemia Social History Social History Smoking status: Former smoker Second hand tobacco smoke exposure: Yes Smoking end date: 03/20/86 Alcohol intake: current Alcohol use details: Beer Substance use: never Do You Feel Safe in your Home?: Yes Lack of Transportation: No Lack of Food: Never True Current Housing: I Have Housing Concerned About Future Housing: No Difficulty Paying Gas/Electric Bills: No Difficulty Paying for Meds: No Currently Unemployed: No Education: High School Diploma/GED Difficulty w/ Childcare or Family Care: No Living arrangements: with family Occupation/Education: 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 HEAD: Normocephalic, atraumatic. NECK: Supple. No adenopathy, no masses. RESPIRATORY: Airway patent, respirations nonlabored. Clear to auscultation bilaterally, no rales, rhonchi, wheezing. CARDIOVASCULAR: Regular rate and rhythm without murmurs, rubs, or gallops. Peripheral pulses 2+ and equal bilaterally. ABDOMINAL: Soft, nontender, nondistended, no hepatosplenomegaly. Normoactive BS. MUSCULOSKELETAL: Moves all extremities. Strength/ROM intact without gross deformities. + Filomena's sign, - Jones test SKIN: Warm, dry, normal color. No rashes. NEURO: A&O X3. Speech clear. Cranial nerves II-XII intact. No ataxic movements. PSYCHIATRIC: Appropriate mood and affect. Normal interaction. Course Vital Signs Vital signs: Vital Signs Temperature 36.6 C 06/10/24 09:02 Pulse Rate 66 06/10/24 09:02 Respiratory Rate 15 06/10/24 09:02 Blood Pressure 186/82 H 06/10/24 09:02 Pulse Oximetry 99 06/10/24 09:02 Oxygen Delivery Room Air 06/10/24 09:02 Temperature 36.6 C 06/10/24 09:02 Pulse Rate 66 06/10/24 09:02 Respiratory Rate 15 06/10/24 09:02 Blood Pressure 186/82 H 06/10/24 09:02 Pulse Oximetry 99 06/10/24 09:02 Oxygen Delivery Room Air 06/10/24 09:02 MDM - Extremity Injury (Lower) MDM Narrative Medical decision making narrative: Patient is a 58-year-old male who presents to the ER with complaints of right lower extremity pain and swelling. He reports approximately 1 week ago he was on a ladder and ?felt a pop his right knee. Patient endorses pain afterwards. He reports he is still experiencing pain around his right knee but is not experiencing significant in the back his right calf. Patient denies any relevant medical history. He reports he has been using ice and heat along with Tylenol to help relieve the pain, but has not been helpful. Patient denies any history of blood clots. Differential Diagnosis Differential diagnosis: Likely acute internal derangement of knee and other (DVT, meniscus tear, right knee muscle strain) Imaging Data Attestation: I personally reviewed and interpreted this imaging study as follows: Radiologist's impression: Impressions Knee X-Ray 06/10/24 10:19 IMPRESSION: 1. Mild right knee osteoarthritis. Venous Doppler Study 06/10/24 11:26 IMPRESSION: Negative right lower extremity venous US. No deep vein thrombosis. Discharge Plan Discharge Clinical Impression: Pain and swelling of right knee, Muscle strain of right knee Patient Disposition: Home, Self-Care Condition: Stable Instructions: Antibiotic Form Additional Instructions: Please return to the ER with any worsening symptoms. Follow-up with primary care provider and orthopedics as soon as possible. Take all medications as prescribed, including regularly scheduled medications. Patient Language: Anguillan Prescriptions: No Action azithromycin [Zithromax Z-Feliberto] 250 mg tablet See Rx Instructions .ROUTE .COMPLEX Qty: 6 0RF Rx Instructions: take 500 mg today (day 1), then 250 mg for 4 days (days 2-5) methylprednisolone [Medrol (Feliberto)] 4 mg tablets,dose pack See Rx Instructions .ROUTE .COMPLEX Qty: 21 0RF Rx Instructions: orally per package directions albuterol sulfate 90 mcg/actuation HFA aerosol inhaler 2 puff INHALATION QID PRN (Reason: shortness of breath or wheezing) Qty: 8.5 0RF tamsulosin 0.4 mg capsule 0.4 mg PO DAILY baclofen 5 mg tablet 5 mg PO .PRN ibuprofen [Advil] 200 mg tablet 200 mg PO Q6H PRN (Reason: Pain) rosuvastatin [Crestor] 20 mg tablet 20 mg PO DAILY fluticasone propionate [Allergy Relief (fluticasone)] 50 mcg/actuation spray,suspension 2 spray intranasal DAILY Rx Instructions: administer into each nostril Follow-up/Referrals: Adelina,DO Reinaldo [Primary Care Provider] - Stand Alone Forms: Work/School Release IP
--- OUTSIDE RECORDS SUMMARY | 2024-06-10 12:07 | XMS_ITS | Encounter Summary ---
Author Organization [facility] Address [facility] [place] [address] Care Team Providers Care Landscape And Yardwork Laborer Name Role Phone Reinaldo Sahu DO Primary Care Provider + Encounter Details Date Type Department Care Team (Late Contact Info) Description 08/25/2021 Hab Housing Message Enc [facility] [address] [address] [place], [facility] Provider monitor results Social History [...] Sex Assigned at Male 02/27/2024 9:58 AM COMPUTER EQUIPMENT REPAIRER Legal Sex Male 1:27 PM COMPUTER EQUIPMENT REPAIRER Gender Identity Male 07/05/2021 3:30 PM CDT Sexual Orientation Straight 07/05/2021 3: 30 PM CDT 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 [facility] [address] [place], [place] [phone] documented as of this encounter Visit Diagnoses Not on filedocumented in this encounter Additional Health Concerns Assessment Noted Time PHQ-9 Depression Total Score: 0 06/22/19 22 7:15 AM CDT documented as of this encounter Care Teams Landscape And Yardwork Laborer Relationship Specialty Start Date End Date Reinaldo Sahu DO [facility] [place] [address] PCP - General FAMILY PRACTICE 04/16/18 documented as of this encounter
--- OUTSIDE RECORDS SUMMARY | 2024-06-10 12:07 | XMS_ITS | Clinical Summary ---
Author Organization [facility] Address [address] [place] [address] Care Team Providers Care Chemical Treatment Plant Technician Name Role Phone Reinaldo Sahu DO Primary [...] hyperglycemia, without long-term current use of insulin ([facility] HHS/HCC) Check blood sugar once daily in AM when fasting 100 strip 11 4 Active Blood Glucose Monitoring Suppl (ONE TOUCH ULTRA 2) w/Device KitIndications:Type 2 diabetes mellitus with hyperglycemia, without long-term current use of insulin ([facility] HHS/HCC) Check blood sugar once daily in AM when fasting 1 kit 4 Active Lancets (ONETOUCH ULTRASOFT) lancetsIndications: Type 2 diabetes mellitus with hyperglycemia, without long-term current use of insulin ([facility] HHS/HCC) Check blood sugar once daily in AM when fasting 1 each 11 4 Active aspirin 81 MG chewable tabletIndications:T ype 2 diabetes mellitus with hyperglycemia, without long-term current use of insulin ([facility] HHS/HCC) Chew 1 tablet (81 mg total) [...] hyperglycemia, without long-term current use of insulin ([facility]) 02/27/2024 Colon cancer screening 01/17/2022 Overview (01/17/2022): Added automatically from request for surgery [id number] Gastroesophageal reflux dise ase, unspecified whether esophagitis present 01/17/2022 Overview (01/17/2022): Added automatically from request for surgery [id number] Personal history of colonic polyps 01/17/2022 Overview (01/17/2022): Added automatically from request for surgery [id number] Dyspnea on exertion 02/23/2017 Electrocardiogram abnormal 02/23/2017 Resolved Problems Problem Noted Date Diagnosed Date Resolved Date Gastroesophageal reflux disease 02/23/2017 07/06/2021 Encounters Date Type Department Care Team Description 04/29/2024 Telephone [facility] [address] [place] [address] Madelaine Marshall, ANY Diabetes (Patient [...] Sex Assigned at Male 02/27/2024 9:58 AM PORTFOLIO ANALYST Legal Sex Male 1:27 PM PORTFOLIO ANALYST Gender Identity Male 07/05/2021 3:30 PM CDT Sexual Orientation Straight 07/05/2021 3: 30 PM CDT 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 Not on f ile Not on file Last Filed Vital Signs Vital Sign Reading Time Taken Comments Blood Pressure 136/86 02/27/2024 9:52 AM PORTFOLIO ANALYST Pulse 87 02/27/2024 9:52 AM PORTFOLIO ANALYST Temperature 36.5 C (97.7 F) 02/27/2024 9:52 AM PORTFOLIO ANALYST Respiratory Rate 16 02/27/2024 9:52 AM PORTFOLIO ANALYST Oxygen Saturation 98% 02/27/2024 9:52 AM PORTFOLIO ANALYST Inhaled Oxygen Concentration - - Weight 136.2 kg (300 lb 4.8 oz) 02/27/2024 9:52 AM PORTFOLIO ANALYST Height 185.4 cm (6' 1 ) 02/27/2024 9:52 AM PORTFOLIO ANALYST Body Mass Index 39.62 02/27/2024 9:52 AM PORTFOLIO ANALYST Plan of Treatment Upcoming Encounters Date Type Department Care Team (Late st Contact Info) Description 06/14/2024 2:20 PM CDT Office Visit [facility] Family & Internal Medicine [address] [phone] Reinaldo Sahu DO [address] [place] [address] 02/21/2025 2:00 PM PORTFOLIO ANALYST Office Visit [facility] THREE [facility], [place] [place], [place] [id number] Sharda Vigil, SURAJ Three [facility]. [address] [address] [place] [address] Health Maintenance Due Date Last Done Comments Kidney Health Evaluation 1965 Pneumococcal Vaccine: Pediatrics (0 to 5 Years) and At-Risk Patients (6 to 64 Years) (1 of 2 - PCV) 09/19/1971 Diabetes: Retinopathy Eye Exam 09/19/1983 Annual Physical 08/08/2019 08/07/2018 Zoster Vaccines (2 of 2) 03/11/2024 01/15/2024 PHQ-2 (Physician [place]) 03/20/2024 02/27/2024 Hemoglobin A1C 07/15/2024 01/15/2024, 07/18, [...] this topic Medical Devices Implanted Type Area Parts Casting Machine Operator Device Identifier Shelf Expiration Date Model / Serial / Lot Stent Propel Mini 16mm - [id number] Implanted:Qty: 1 on 09/06/2018 by Robin Gordon MD at [facility] Left: Nose INTERSECT ENT [id number] 02/29/2020 [id number] / / [id number] Stent Propel Mini 16mm - [id number] Implanted:Qty: 1 on 09/06/2018 by Robin Gordon MD at [facility] Right: Nose INTERSECT ENT [id number] 02/23/2020 [id number] / / [id number] Procedures Procedure Name Priority Date/Time Associated Diagnosis Comments LIPID PANEL Routine 01/15/2024 7:58 AM CDT Prediabetes Annual physical exam Screening for lipid disorders Screening for endocrine, metabolic and immunity disorder HEMOGLOBIN, GLYCOSYLATED Routine 01/15/2024 7:58 AM CDT Prediabetes Annual physical exam Screening for lipid disorders Screening for endocrine, metabolic and immunity disorder COLONOSCOPY Routine 01/31/2022 7:03 AM PORTFOLIO ANALYST HEPATITIS C ANTIBODY W/RFX TO HCV RNA Routine 09/07/2021 11:47 AM CDT from Last 3 Months or Most Recently Relevant to Health Maintenance Results * (ABNORMAL) HEMOGLOBIN, GLYCOSYLATED (01/15/2024 7:58 AM CDT) HGB A1C 6.7(H) 4.5 - 6.2 % 01/15/2024 3:10 PM CDT [facility] ESTIMATED AVG GLUCOSE 146(H) 74 - 106 MG/DL 01/15/2024 3:[address] PM [address] [facility] 01/15/2024 7:58 AM CDT Reinaldo Sahu DO LABORATORY Final Re [facility] [place] [address] [place] [address], * (ABNORMAL) LIPID PANEL (01/15/2024 7:58 AM CDT) CHOLESTEROL 146 <200 MG/DL 01/15/2024 3:23 PM [address] [facility] TRIGLYCERIDES 216(H) <150 MG/DL 01/15/2024 3:23 PM CDT [facility] HDL 43 >40 MG/DL 01/15/2024 3:23 PM CDT [facility] LDL-C 60 <100 MG/DL 01/15/2024 3:23 PM CD[address] [facility] VLDL CALCULATION 43(H) 5 - 28 MG/DL 01/15/2024 3:23 PM CD[address] [facility] CHOL/HDL RATIO 3.4 0.0 - 4.0 01/15/2024 3:23 PM CD[address] [facility] LDL/HDL 1.4 0.41 - 2.13 01/15/2024 3:23 PM CD[address] [facility] NON HDL CHOLESTEROL 103 <140 MG/DL 01/15/2024 3:23 PM CD[address] [facility] 01/15/2024 7:58 AM CDT Reinaldo Sahu DO LABORATORY Final Re aime Performing Organization Address City/[facility]/ZIP Co de Phone Number JUAN MIGUEL AVELINO, [place] [address] [place] [address], * HEPATITIS C ANTIBODY W/RFX TO HCV [...] a test for HCV RNA (test code 89203) is suggested. For additional information please refer to http://education.[employer]/faq/NUC10s7 (This link is being provided for informational/ educational purposes only.) 09/07/2021 11:4 7 AM CDT 09/08/2021 8:33 AM CDT us Reinaldo Sahu DO LABORATORY Final Re sult [facility] [address] [place] [address] * COLONOSCOPY GENERIC (04/16/2014) 04/16/2014 Narrative 04/16/2014 Ordered by an unspecified provider. us Documents Scanned SCANNING Final Result from Last 3 Months or Most Recently Relevant to Health Maintenance Insurance Care Teams Chemical Treatment Plant Technician Relationship Specialty Start Date End Date Reinaldo Sahu DO [address] [place] [phone] PCP - General FAMILY PRACTICE 04/16/18
--- OUTSIDE RECORDS SUMMARY | 2024-06-10 12:07 | XMS_ITS | Encounter Summary ---
Author Organization [facility] Address [facility] [place] [address] Care Team Providers Care Payment Collector Name Role Phone Reinaldo Sahu DO Primary Care Provider + Encounter Details Date Type Department Care Team (Late Contact Info) Description 08/25/2021 Emefcy Message Enc [facility] [address] [address] Mychart, [facility] Provider lab results Social History Tobacco [...] Sex Assigned at Male 02/27/2024 9:58 AM COLD PRESS LOADER Legal Sex Male 1:27 PM COLD PRESS LOADER Gender Identity Male 07/05/2021 3:30 PM CDT Sexual Orientation Straight 07/05/2021 3: 30 PM CDT 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 [facility] [address] [place], [place] [address] documented as of this encounter Visit Diagnoses Not on filedocumented in this encounter Additional Health Concerns Assessment Noted Time PHQ-9 Depression Total Score: 0 06/22/19 22 7:15 AM CDT documented as of this encounter Care Teams Payment Collector Relationship Specialty Start Date End Date Reinaldo Sahu DO [facility] [place] [address] PCP - General FAMILY PRACTICE 04/16/18 documented as of this encounter
--- OUTSIDE RECORDS SUMMARY | 2024-06-10 12:07 | XMS_ITS | Encounter Summary ---
Author Organization [facility] Address [facility] [place] [address] Care Team Providers Care Physician Relations Representative Name Role Phone Reinaldo Sahu DO Primary Care Provider + Encounter Details Date Type Department Care Team (Latest Contact Info) Description 01/17/2022 Trainfox Message Enc [facility] Multispecialty Care - [address], [address] [place] [phone] [place], [facility] Provider time change on procedure Social History [...] Sex Assigned at Male 02/27/2024 9:58 AM FITTING ROOM OPERATOR Legal Sex Male 1:27 PM FITTING ROOM OPERATOR Gender Identity Male 07/05/2021 3:30 PM CDT Sexual Orientation Straight 07/05/2021 3: 30 PM CDT 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, [facility] [address] [place] [address] Sharda Vigil, LUMBER TRIMMER-C Three [facility]. [facility] [address] [place], [place] [phone] documented as of this encounter Visit Diagnoses Not on filedocumented in this encounter Additional Health Concerns Assessment Noted Time PHQ-9 Depression Total Score: 8 09/08/19 22 11:19 AM CDT documented as of this encounter Care Teams Physician Relations Representative Relationship Specialty Start Date End Date Reinaldo Sahu DO [facility] [place] [facility] [place] [address] PCP - General FAMILY PRACTICE 04/16/18 documented as of this encounter
--- OUTSIDE RECORDS SUMMARY | 2024-06-10 12:07 | XMS_ITS | Encounter Summary ---
Author Organization [facility] Address [facility] [place] [address] Care Team Providers Care Campus Manager Name Role Phone Reinaldo Sahu DO Primary Care Provider + Encounter Details Date Type Department Care Team (Late Contact Info) Description 01/28/2020 Prep for Procedure [facility] Pre-Admission Testing [address] [facility] [place], [place] [phone] Austin Harp MD [address] [place] [address] Social History Tobacco Use Types Packs/Day [...] Sex Assigned at Male 02/27/2024 9:58 AM ACCOUNTING REPRESENTATIVE Legal Sex Male 1:27 PM ACCOUNTING REPRESENTATIVE Gender Identity Male 07/05/2021 3:30 PM CDT Sexual Orientation Straight 07/05/2021 3: 30 PM CDT 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 No / Unsure 01/31/2020 5:30 AM ACCOUNTING REPRESENTATIVE documented as of this encounter Plan of Treatment Upcoming Encounters Date Type Department Care Team (Late st Contact Info) Description 06/14/2024 2:20 PM CDT Office Visit [facility] Medical [facility] Family & Internal Medicine - [place] [address] [place] [address] MariposadominikReinaldo DO [address] [place] [address] 02/21/2025 2:00 PM ACCOUNTING REPRESENTATIVE Office Visit [facility] THREE [facility], [place] [address] [place] [address] Sharda Vigil NP-C Three [facility]. [facility] [address] [place], [place] [phone] documented as of this encounter Results * PRE-SURGICAL/PRE-PROCEDURE CORONAVIRUS (COVID 19) (01/28/2020 8:57 AM ACCOUNTING REPRESENTATIVE) CORONAVIRUS SARS COV 2 PCR (RESP) NOT DETECTED NOT DETECTED 01/29/2020 3:55 PM ACCOUNTING REPRESENTATIVE [facility] Comment: A Not Detected (negative) test [...] providers and patients using the following websites: https://www.GetOutf[employer].com/home/Covid-19/HCP/[facility]/fact- sheet.html https://www.[employer]/home/Covid-19/Patients/ [facility]/fact-sheet.html This test has been authorized by the FDA under an Emergency Use Authorization (EUA) for use by authorized laboratories. Due to the current public health emergency, [facility] is receiving a high volume of samples [...] about COVID-19 can be found at the [facility] website: www.[employer]/Covid19. Test performed at [facility] [address] [place] [address] Director: LAURIE CARUSO DO,MPH FIRST TEST NO 01/28/2020 10:14 AM [facility] EMPLOYED IN HEALTHCARE NO 01/28/2020 10:14 AM [facility] SYMPTOMATIC DEFINED BY CDC NO 01/28/2020 10:14 AM [facility] DATE OF SYMPTOM ONSET NO 01/28/2020 10:36 AM [facility] HOSPITALIZATION STATUS NO 01/28/2020 10:14 AM [facility] PATIENT IN ICU NO 01/28/2020 10:14 AM [facility] RESIDENT OF [facility] NO 01/28/2020 10:14 AM [facility] NO 01/28/2020 10:36 AM [facility] PATIENT'S RACE WHITE OR 01/28/2020 10:14 AM [facility] ETHNICITY NONHISPANIC 01/28/2020 10:14 AM [facility] SOURCE (QST) NASOPHARYNGEAL SWAB 01/28/2020 10:14 AM [facility] NASOPHARYNGEAL SWAB / Unknown 01/28/2020 8:57 AM ACCOUNTING REPRESENTATIVE us Austin Harp MD MICROBIOLOGY - GENERAL ORDERAB LES Final Result [facility] [address] [place] [address], [facility] [address] [place] [address], documented in this encounter Visit Diagnoses Diagnosis Preoperative testing- Primary Preoperative examination, unspecified documented in this encounter Additional Health Concerns Infection Onset Date Last Indicated Resolved Time COVID-19 Rule Out 01/28/2020 01/28/2020 01/29/2020 3:56 PM ACCOUNTING REPRESENTATIVE Assessment Noted Time PHQ-9 Depression Total Score: 0 12/06/19 20 2:25 PM CDT documented as of this encounter Care Teams Campus Manager Relationship Specialty Start Date End Date Reinaldo Sahu DO [address] [place] [address] PCP - General FAMILY PRACTICE 04/16/18 documented as of this encounter
== END 2024-06-10 12:38 | disposition home or self-care (01) ==
PROVIDERS: Emergency Provider Registered Nurse; PCP Student in an Organized Health Care Education/Training Program
DX: M25.461 Effusion, right knee (principal); S86.811A Strain of other muscle(s) and tendon(s) at lower leg level, right leg, initial encounter; X58.XXXA Exposure to other specified factors, initial encounter; E78.5 Hyperlipidemia, unspecified; Z87.891 Personal history of nicotine dependence
CPT/HCPCS: 73564; 93971; 99284

== ENCOUNTER 2024-10-12 09:06 | Outpatient (CLI) | payer BC, SELFPAY ==
--- NOTE | ~2024-10-12 | MR_ITS ---
EXAMINATION: MR knee RT wo con DATE: 10/12/2024 09:57 INDICATION: anterior/medial right knee pain s/p planting foot on roof TECHNIQUE: Magnetic resonance imaging (MRI) of the right knee was performed without intravenous contr ast. Sequences included axial PD-weighted FS FSE, coronal PD-weighted FSE and PD-weighted FS FSE, sag ittal PD-weighted FSE, and sagittal T2-weighted FS FSE. COMPARISON: X-ray right knee 06/10/2024 FINDINGS: Medial compartment: Radial tear of the medial meniscus at the junction of the anterior horn and body. Complex tear of the posterior horn with an oblique component at the junction of the posterior horn and body, a small fla ps of meniscal tissue in the superior medial joint space and at the meniscal root extending posterior medially. Full-thickness cartilage fissures over the medial weightbearing surface of the MFC. Mild M FC and moderate medial plateau cartilage thinning. Mild osteophytosis. Lateral compartment: Small apical tear of the meniscal body. Oblique undersurface tear of the meniscal body, with possible granulation tissue. Mild osteophytosis. Patellofemoral compartment: Mild cartilage thinning over the medial facet. Retinacula intact. Mild osteophytosis. Ligaments and tendons: High signal deep to the origin of the ACL, the remaining ACL tendon appears to be intact. PCL intact. Thickening of the MCL. LCL intact. The remaining flexor and extensor tendons are intact. Fluid: Small volume joint fluid with heterogeneous signal in the suprapatellar recess. Small Knott's cyst, w ith heterogeneous internal signal medially. Osseous/other: No suspicious focal or diffuse marrow signal. IMPRESSION: Radial and complex tears of the medial meniscus, with displaced meniscal flaps. Apical tear of the body of the lateral meniscus. Oblique undersurface tear of the body of the lateral meniscus with evidence of healing. Low-grade partial tear of the ACL origin. Chronic MCL tear. Small joint effusion and Knott's cyst with mild synovitis. Mild tricompartmental osteoarthritis. Reviewed, dictated and finalized at location K. IMPRESSION: Radial and complex tears of the medial meniscus, with displaced meniscal flaps. Apical tear of the body of the lateral meniscus. Oblique undersurface tear of t he body of the lateral meniscus with evidence of healing. Low-grade partial tear of the ACL origin. Chronic MCL tear. Small joint effusion and Knott's cyst with mild synovitis. Mild tricompartmental osteoarthritis.
== END 2024-10-12 09:07 | disposition home or self-care (01) ==
PROVIDERS: PCP Student in an Organized Health Care Education/Training Program; Visit Provider Student in an Organized Health Care Education/Training Program
DX: M25.561 Pain in right knee (principal); G89.29 Other chronic pain
CPT/HCPCS: 73721